=== PATIENT | male | born 1960 | race Caucasian/White ===

== ENCOUNTER 2021-04-14 15:17 | Emergency (ER) | payer OTHER ==
[~2021-04-14 15:17] MED LIST: K-DUR TAB 20 M20 MEQ PO
[2021-04-14] MEDS ORDERED: TORADOL 10 MG T10 MG PO (15:42)
[2021-04-14] MEDS ORDERED: CYCLOBENZAPRINE10 MG PO (15:42)
== END 2021-04-14 16:14 | disposition home or self-care (01) ==
LOC: ER1 15:17
DX: S39.012A Strain of muscle, fascia and tendon of lower back, initial encounter (principal); Z88.8 Allergy status to other drugs, medicaments and biological substances; W18.40XA Slipping, tripping and stumbling without falling, unspecified, initial encounter
CPT/HCPCS: 96372; 99283; J1885